=== PATIENT | female | born 1985 ===

== ENCOUNTER → 2016-04-22 | Outpatient (CLI) | payer BC | LOC: LAB 16:57 | PROVIDERS: ATTEND Family Medicine | DX: N91.1 Secondary amenorrhea (principal); O09.01 Supervision of pregnancy with history of infertility, first trimester | CPT/HCPCS: 36415; 84144; 84702 ==

== ENCOUNTER → 2016-05-23 | Outpatient (CLI) | payer BC ==
[2016-05-23 16:03] LABS: MEAN CORPUSCULAR HEMOGLOBIN 32.3 PG (26.0-34.0); MEAN CORPUSCULAR HGB CONC 35.3 g/dL (31.0-37.0); MEAN PLATELET VOLUME 10.5 FL (6.0-9.5); WHITE BLOOD COUNT 7.73 10^3uL (4.0-11.0)
[2016-05-24 00:57] LABS: HEPATITIS B SURFACE ANTIGEN C Negative
[2016-05-24 19:53] LABS: RUBELLA AB IGG 1.15 OD Ratio (>1.09)
== END ==
LOC: RAD 14:56
PROVIDERS: ATTEND Family Medicine
DX: Z34.91 Encounter for supervision of normal pregnancy, unspecified, first trimester (principal); Z3A.08 8 weeks gestation of pregnancy
CPT/HCPCS: 36415; 76817; 84144; 85027; 86592; 86762; 86850; 86900; 86901; 87340